=== PATIENT | female | born 1990 ===

== ENCOUNTER → 2024-08-03 | Outpatient (CLI) | payer OTHER ==
[2024-08-16 09:29] LABS: HPV HIGH RISK BY TMA Not Detected; HPV SOURCE Cervical
== END ==
LOC: LAB SHORT 16:08 → LAB 16:08
PROVIDERS: Student in an Organized Health Care Education/Training Program
DX: Z12.4 Encounter for screening for malignant neoplasm of cervix (principal)
CPT/HCPCS: 87624; G0123